=== PATIENT | female | born 1990 ===

== ENCOUNTER 2020-12-18 13:08 | Emergency (ER) | payer OTHER ==
[~2020-12-18] VITALS: Ht 160 cm; Wt 47.6 kg
[2020-12-18] MEDS ORDERED: CITALOPRAM20 MG/10 M (13:35)
== END 2020-12-18 17:33 | disposition home or self-care (01) ==
LOC: ER 13:08
DX: J45.902 Unspecified asthma with status asthmaticus (principal); Z03.818 Encounter for observation for suspected exposure to other biological agents ruled out

== ENCOUNTER 2021-02-18 17:22 | Emergency (ER) | payer OTHER ==
[~2021-02-18] VITALS: Ht 157.5 cm; Wt 47.6 kg
[~2021-02-18 17:22] MED LIST: CITALOPRAM20 MG/10 M
[2021-02-18] MEDS ORDERED: PROAIR HFA8.5 GM (17:33)
== END 2021-02-19 00:18 | disposition home or self-care (01) ==
LOC: ER 17:22
DX: J45.901 Unspecified asthma with (acute) exacerbation (principal); F41.8 Other specified anxiety disorders; J04.2 Acute laryngotracheitis